=== PATIENT | female | born 1970 | race Caucasian/White ===

== ENCOUNTER 2017-10-26 20:06 | Emergency (ER) | payer OTHER ==
[~2017-10-26] VITALS: Ht 160 cm; Wt 56.0 kg
[2017-10-26 20:41] VITALS: PULSE 82; RESP 15; TEMP 97.6; O2SAT 92
--- NOTE | 2017-10-26 22:19 | PD ---
HPI . Syncope Chief Complaint: Syncope/Near-Syncope Time Seen by Provider: 21:26 Travel History International Travel<30 days: No Contact w/Intl Traveler<30days: No Traveled to known affect area: No History of Present Illness HPI The patient is brought to us with the chief complaint of syncope. She has admittedly been drinking a lot tonight. She states that they have been working her to and that she just needs a vacation. 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 PFSH Past Medical History Cancer: Yes (as reported by pt.) Chemotherapy: Yes (as reported by pt.) Diabetes: Yes (as reported by pt.) Patient Takes Glucophage: No Diminished Hearing: No Tetanus Vaccination: < 5 Years ?: Not LMP: 2 weeks ago Ovarian Cysts: Yes Past Surgical History Other Surgery: Yes (cervical) Social History Alcohol Use: Yes Tobacco Use: Yes Substance Use: No Allergies-Medications (Allergen,Severity, Reaction): Coded Allergies: aspirin (Verified Allergy, Intermediate, rash, 10/26/17) Reported Meds & Prescriptions Reported Meds & Active Scripts Active No Active Prescriptions or Reported Medications Review of Systems Except as stated in HPI: all other systems reviewed are Neg Physical Exam Narrative GENERAL: Sleeping but easily arousable. She smells heavily of alcohol. SKIN: Warm and dry. HEAD: Normocephalic/atraumatic. EYES: Pupils are equal. Extraocular movements are intact. NECK: Normal range of motion. CARDIOVASCULAR: Regular rate and rhythm. Heart sounds are normal. RESPIRATORY: Nonlabored respirations. Lungs are clear with full air movement throughout. ABDOMEN: Abdomen is soft and nontender. MUSCULOSKELETAL: Atraumatic. NEUROLOGICAL: Nonfocal. PSYCHIATRIC: Appropriate mood and affect. Data Data Last Documented VS Vital Signs Date Time Temp Pulse Resp B/P (MAP) Pulse Ox O2 Delivery O2 Flow Rate FiO2 10/26/17 20:41 97.6 82 15 92 MDM Medical Decision Making Medical Screen Exam Complete: Yes Emergency Medical Condition: Yes Differential Diagnosis Differential diagnosis of altered mental status includes but is not limited to infection, electrolyte abnormality, neurological event, intoxication Narrative Course This patient presents to us acutely intoxicated. She will stay here until she either sleeps it off or has a ride home. Diagnosis Primary Impression: Acute alcohol intoxication Qualified Codes: F10.929 - Alcohol use, unspecified with intoxication, unspecified Patient Instructions: Alcohol Intoxication (DC), General Instructions Scripts No Active Prescriptions or Reported Meds Disposition: 01 DISCHARGE HOME Condition: Stable Rianna Molina MD Oct 26, 2017 22:19
== END 2017-10-26 22:44 | disposition home or self-care (01) ==
LOC: NEPC 20:06
DX: F10.129 Alcohol abuse with intoxication, unspecified (principal); E11.9 Type 2 diabetes mellitus without complications; Z72.0 Tobacco use; Z88.6 Allergy status to analgesic agent
CPT/HCPCS: 99281